=== PATIENT | female | born 1965 | race Caucasian/White ===

== ENCOUNTER 2017-06-28 17:07 | Inpatient (IN) | payer BC, OTHER ==
[~2017-06-28] VITALS: Ht 162.6 cm; Wt 66.2 kg
[2017-06-28] MEDS ORDERED: THIAMINE HCL 200 MG/2 ML VIAL IM ONE (17:45)
[2017-06-28] MEDS ORDERED: CLONIDINE HCL 0.1 MG TABLET PO PRN (17:45)
[2017-06-28] MEDS ORDERED: ACETAMINOPHEN 325 MG TABLET PO PRN (17:45)
[2017-06-28] MEDS ORDERED: MAG HYDROX/AL HYDROX/SIMETH 30 ML LIQUID UDC PO PRN (17:45)
[2017-06-28] MEDS ORDERED: LORAZEPAM 2 MG/1 ML VIAL IM PRN (17:45)
[2017-06-28] MEDS ORDERED: ONDANSETRON 4 MG/2 ML VIAL IM PRN (17:45)
[2017-06-28] MEDS ORDERED: diphenhydrAMINE 50 MG CAPSULE PO PRN (17:45)
[2017-06-28] MEDS ORDERED: IBUPROFEN 400 MG TABLET PO PRN (17:45)
[2017-06-28] MEDS ORDERED: LORAZEPAM 1 MG TABLET PO PRN ×2 (17:45)
[2017-06-28] MEDS ORDERED: MIRALAX 17 GM POWD.PACK PO PRN (17:45)
[2017-06-28] MEDS ORDERED: MAGNESIUM HYDROXIDE 30 ML LIQUID UDC PO PRN (17:45)
[2017-06-28] MEDS ORDERED: ONDANSETRON ODT 4 MG TAB.RAPDIS SL PRN (17:45)
[2017-06-28 18:00] VITALS: BP 117/72
--- NOTE | 2017-06-28 18:00 | NUR ---
PRE-ASSESSMENT Pt admitted for ETOH withdrawals. A/O x4, pt is intake office at this time with daughter at side. V/S are stable and as follows: T: 98.5, 117/72, 96% room air, RR 16 even and unlabored, denies pain at this time. Reports history of epilepsy, and takes Keppra 500 mg Q12H, reports hx of pulmonary embolism (multiple, but last one was 5 years ago) and remains on Coumadin 5 mg daily. Pt to continue intake process, MD to be notified of pt status and hx at this time. Addendum: 06/28/17 at 1859 by JOHNNY TOVAR RN HEART RATE 99. CIWA 9.
[2017-06-28] MEDS ORDERED: LORAZEPAM 1 MG TABLET PO ONE (18:15)
[2017-06-28] MEDS ORDERED: WARF5TAB77 PO (18:23)
[2017-06-28] MEDS ORDERED: LEVE500T9 PO (18:23)
--- NOTE | 2017-06-28 18:30 | NUR ---
PT STATUS/MD COMMUNICATION Pt in lab to provide blood for admission when nurse and Dr. King notified pt is having a "seizure." Per Dr. King orders. 2mg IM Ativan to be administered at once for seizure. Pt has not yet provided urine for toxicology screen or hcg, MD aware. RR called, and Ativan 2mg administered as ordered per MD. Pt brought up in wheelchair at this time, and is on a 1:1 for safety. To be monitored closely. rubber off nurse to resume care.
[2017-06-28] MEDS ORDERED: LORAZEPAM 2 MG/1 ML VIAL ONE (18:39)
[2017-06-28] MEDS ORDERED: LORAZEPAM 2 MG/1 ML VIAL IM ONE (18:45)
[2017-06-28 18:47] LABS: BASOPHILS % (AUTO) 0.7 % (0.0-2.0); HEMATOCRIT 38.4 % (37-47); HEMOGLOBIN 12.6 G/DL (12.0-16.0); LYMPHOCYTES # (AUTO) 3.7 K/UL (0.8-4.8); LYMPHOCYTES % (AUTO) 51.8 % (20.5-51.5); MEAN CORPUSCULAR HEMOGLOBIN 32.6 UUG (27.0-31.0); MEAN CORPUSCULAR HGB CONC 33 g/dL (32.0-37.0); MEAN CORPUSCULAR VOLUME 99.2 FL (81.0-99.0); MONOCYTES # (AUTO) 0.4 K/UL (0.1-1.30); MONOCYTES % (AUTO) 5.1 % (0.0-11.0); NEUTROPHILS % (AUTO) 42.4 % (38.5-71.5); PLATELET COUNT (AUTO) 188 K/UL (150-450); RED BLOOD CELL COUNT(AUTO) 3.87 MIL/UL (4.2-5.4); WHITE BLOOD COUNT (AUTO) 7.1 K/UL (4.0-11.2)
[2017-06-28 18:58] LABS: CREATININE 0.7 mg/dL (0.6-1.3); MAGNESIUM 1.9 mg/dL (1.8-2.4); POTASSIUM 3.6 mmol/L (3.5-5.1)
[2017-06-28] MEDS: LORAZEPAM 2 MG/1 ML VIAL IM PRN ×2 (19:02→19:10)
[2017-06-28 19:21] LABS: THYROID STIMULATING HORMONE 1.674 mIU/mL (0.358-3.740)
--- NOTE | 2017-06-28 19:45 | NUR ---
Start of Shift Note: Report received from day shift nurse, pre-admission assessment completed. Pt is a 51 y/o female admitted today for medically-supervised withdrawal from ETOH. Pt reports achieving 40 days of sobriety and relapsing on 06/23/17 and drinking 2 pints vodka daily. Pt received with last CIWA=9 and one-time Ativan 2mg IM given upon admission. Pt is on a regular diet. Pt reports NKA. PMHx: epilepsy and is on Keppra, PE and is on Coumadin. Pt received in room and reports anxiety, agitation; pt is noted to be labile. Bed is in low position and locked, side rails up x2, call light within reach. Will continue to monitor.
[2017-06-28 20:00] VITALS: BP 115/77
[2017-06-28 20:36] LABS: *AMPHETAMINE, URINE NEGATIVE (NEGATIVE); *BARBITURATE, URINE NEGATIVE (NEGATIVE); *CANNABINOID, URINE POSITIVE (NEGATIVE); *COCCAINE, URINE NEGATIVE (NEGATIVE); *OPIATE, URINE NEGATIVE (NEGATIVE); *PHENCYCLIDINE SCREEN,URINE NEGATIVE (NEGATIVE)
--- NOTE | 2017-06-28 21:00 | NUR ---
ADMISSION NOTE: NEW ADMISSION IS A 51 YO FEMALE ON THE [facility] FLOOR AT 18:35 ON 06/28/17; PRE-ADMISSION ASSESSMENT COMPLETED INTAKE OFFICE BY DAY SHIFT NURSE. UDS RESULTED POSITIVE FOR CANNABINOIDS. VS: WNL. CIWA: 9. HEIGHT IS 5'4 AND WEIGHT IS 146 LBS. PT REPORTS NKDA/NKFA. PT REPORTS PCP IS DR WILKERSON. PT ADMITTED UNDER THE CARE OF DR WILSON. PT REPORTS THE FOLLOWING SUBSTANCE USE: PT REPORTS ACHIEVING 40 DAYS OF SOBRIETY WHILE IN [facility], AND THEN RELAPSING NOT LONG AFTER DISCHARGE. PT IS A POOR HISTORIAN, AND REPORTS DRINKING FOR 2 DAYS. PT'S DAUGHTER REPORTS THAT PT RELAPSED ON 06/23/17 HAS BEEN DRINKING FOR 6 DAYS. PT REPORTS DRINKING 1 PINT DAILY FOR 2 DAYS. PT REPORTS THAT SHE SMOKES OCCASIONALLY. WRITTEN SMOKING CESSATION EDUCATION PROVIDED. PT VERBALIZES UNDERSTANDING. PT REPORTS PMHX OF MULTIPLE PE'S AND IS ON WARFARIN 5MG; ALSO KEPPRA 750MG FOR EPILEPSY. PT REPORTS THAT HER LAST SEIZURE WAS 6 MONTHS AGO. PT IS AMBULATORY WITH STEADY GAIT. PT IS A&OX4, AND INTERMITTENTLY LABILE AND AGITATED. SKIN ASSESSMENT: SCRATCH TO FOREHEAD AND CUT TO LEFT THIRD FINGER; PHOTO DOCUMENTATION COMPLETED AND PLACED IN CHART. PT DENIES CURRENT OR HX OF SI/HI. LUNGS ARE CTA THROUGHOUT, RESPIRATIONS ARE EVEN AND UNLABORED. PT DENIES COUGH. HEART SOUNDS REGULAR. BOWEL SOUNDS ACTIVE IN ALL QUADRANTS; PT REPORTS LAST BM WNL ON 06/27/17. ABDOMEN IS SOFT, NON-DISTENDED, NON-TENDER.
[2017-06-28] MEDS: LEVETIRACETAM 500 MG TABLET PO SCH (21:39)
--- NOTE | 2017-06-28 21:39 | NUR ---
PRN Ativan 2mg: Pt noted to be agitated and reports severe anxiety. Pt c/o nausea and noted with "dry heaves". CIWA is 16. Administered PRN Ativan 2mg PO as ordered according to CIWA score. Will reassess in one hour.
[2017-06-28] MEDS ORDERED: HYDROXYZINE PAMOATE 25 MG CAPSULE PO ONE (22:15)
--- NOTE | 2017-06-28 22:17 | NUR ---
Vistaril 50mg ONCE: Pt c/o anxiety after PRN Atian administration. Dr King notified and Vistaril 50mg one time order received. Medication administered as ordered.
[2017-06-28] MEDS ORDERED: HYDROXYZINE PAMOATE 25 MG CAPSULE ONE (22:30)
--- NOTE | 2017-06-28 22:40 | NUR ---
PRN Reassessment: Pt noted to be less anxious and agitated. Pt denies nausea at this time. CIWA decreased from 16 to 6 one hour after PRN Ativan 2mg administration.
[2017-06-29] VITALS: BP 117/55
--- NOTE | 2017-06-29 | NUR ---
CIWA Deferred: CIWA is deferred for sleep. V/S stable. All safety precautions are in place. Will continue to monitor. Addendum: 06/29/17 at 0258 by NESS SANCHEZ RN Amended: Links added.
--- NOTE | 2017-06-29 04:00 | NUR ---
Vitals Refused, CIWA Deferred: Patient refuses 04:00 vital signs. Pt educated on risks and benefits but still refused. CIWA assessment is deferred for sleep. All safety precautions are in place. Will continue to monitor. Addendum: 06/29/17 at 0555 by NESS SANCHEZ RN Amended: Links added.
--- NOTE | 2017-06-29 07:04 | NUR ---
End of Shift Note: Pt is a 51 y/o female admitted to [facility] on 06/28/17 for medically-supervised withdrawal from ETOH. Pt reported a PMHx of epilepsy recurrent PE's; pt is on Coumadin and Keppra. Pt is on a regular diet. Pt reports NKA. Pt is a full code. Pt reports achieving 40 days of sobriety and relapsed on 06/23/17, drinking 1 pint vodka daily. PRN Ativan 2mg was given for CIWA=16, which was effective and CIWA reduced to 6. Vistaril 50mg one time order was given for anxiety. V/S stable throughout shift. Total fluid intake this shift: 2446 ml; output: urine x 2 and BM x 0. Pt is currently in bed and slept 8 hours this shift. All needs have been attended and met. Pt endorsed to day shift nurse.
[2017-06-29 08:00] VITALS: BP 129/77
[2017-06-29] MEDS: FOLIC ACID 1 MG TABLET PO SCH (08:58)
[2017-06-29] MEDS: MULTIVITAMINS,THERAPEUTIC TABLET PO SCH (08:59)
[2017-06-29] MEDS: THIAMINE HCL 100 MG TABLET PO SCH (08:59)
--- NOTE | 2017-06-29 08:59 | NUR ---
PRN TYLENOL Patient complained of 5/10 headache, prn Tylenol given. will continue to monitor patient.
[2017-06-29] MEDS ORDERED: TUBERCULIN,PURIF.PROT.DERIV. 5 TU/0.1 ML TEST ID ONE (09:00)
[2017-06-29] MEDS: LEVETIRACETAM 500 MG TABLET PO SCH ×2 (09:14→20:38)
--- NOTE | 2017-06-29 09:59 | NUR ---
REASSESSMENT PRN TYLENOL Patient reports headache resolved. Pain 0/10.
--- NOTE | 2017-06-29 10:00 | NUR ---
START OF SHIFT Received report from steward/stewardess night nurse. Patient is 51 year old female admitted for medically supervised withdrawal from alcohol. Patient is full code with NKA. Patient is on senior safety support manager for fall and seizure precaution. On assessment this AM: CIWA: 5. Denies SOB, chest pain. Vitals signs WNL. Reports mild anxiety and headache. Med compliant with AM meds. PRN Tylenol po given for headache. PPD skin test performed on LFA to be read on 07/01/17. Patient was encouraged to attend group meetings today. Will continue to monitor patient.
[2017-06-29 12:00] VITALS: BP 131/91
--- NOTE | 2017-06-29 14:57 | NUR ---
PRN ATIVAN Patient's CIWA is 5. Patient complains of moderate anxiety and sweating. PRN Ativan given. Will continue to monitor patient.
[2017-06-29] MEDS ORDERED: HYDROXYZINE PAMOATE 25 MG CAPSULE PO PRN (15:15)
--- NOTE | 2017-06-29 15:57 | NUR ---
REASSESSMENT PRN ATIVAN Patient's CIWA is 2. Patient reports decreased anxiety.
[2017-06-29 16:00] VITALS: BP 128/75
[2017-06-29] MEDS ORDERED: WARFARIN SODIUM 5 MG TABLET PO SCH (17:00)
--- NOTE | 2017-06-29 17:33 | NUR ---
Patient reports that she does not have PCP.
[2017-06-29] MEDS ORDERED: HYDR-3895 PO (18:36)
[2017-06-29] MEDS ORDERED: DIPH50CA37 PO (18:36)
[2017-06-29] MEDS ORDERED: LEVE500T9 PO (18:36)
--- NOTE | 2017-06-29 19:25 | NUR ---
END OF SHIFT Patient is 51 year old female admitted for medically supervised withdrawal from alcohol. Patient is full code with NKA. Patient is on safety leader for fall and seizure precaution. Patient received Ativan 1mg po Ativan, CIWA 5, complaining of increasing anxiety and sweaty. Reassessed patient, CIWA 2 and reports decreased anxiety. Compliant with routine meds during this shift. Patient tolerating meals without n/v. Possible discharge tomorrow. laundry clerkrn shift mgr will continue to monitor patient.
[2017-06-29 20:00] VITALS: BP 162/101
--- NOTE | 2017-06-29 20:00 | NUR ---
Start of Shift Note: Report received from day shift nurse. Pt is a 51F admitted on 06/28/17 for medically-supervised withdrawal from ETOH. Pt reports achieving 40 days of sobriety and then relapsed on 06/23/17; pt then reports drinking 1 pint vodka daily. Pt received with last CIWA=2, and PRN Ativan 1mg and PRN Tylenol were given during day shift. Pt is to discharge tomorrow. Pt is on a regular diet. Pt reports NKA. PMHx: epilepsy, recurrent PE's. Pt received in room and reports anxiety. Pt verbalizes readiness for discharge. Bed is in low position and locked, side rails up x2, call light within reach. Will continue to monitor.
--- NOTE | 2017-06-29 20:38 | NUR ---
PRN Clonidine: Pt with BP 162/101. Administered PRN Clonidine as ordered. Will continue to monitor.
[2017-06-29 21:40] VITALS: BP 146/95
--- NOTE | 2017-06-29 21:40 | NUR ---
PRN Reassessment: BP is now 146/95 one hour after PRN Clonidine administration.
--- NOTE | 2017-06-30 | NUR ---
V/S Refused, CIWA Deferred: Pt refuses 00:00 vital signs. Pt educated on risks and benefits but still refused. CIWA is deferred for sleep. All safety precautions are in place. Will continue to monitor. Addendum: 06/30/17 at 0304 by NESS SANCHEZ RN Amended: Links added.
--- NOTE | 2017-06-30 04:00 | NUR ---
Vital Signs Refused, CIWA Deferred: Patient refuses 04:00 vital signs assessment. Patient educated on risks and benefits but still refused. CIWA is deferred for sleep. Addendum: 06/30/17 at 0513 by NESS SANCHEZ RN Amended: Links added.
--- NOTE | 2017-06-30 06:53 | NUR ---
End of Shift Note: Pt is a 51F admitted to [facility] on 06/28/17 for medically-supervised withdrawal from ETOH. Pt reports achieving 40 days of sobriety and then relapsed on 06/23/17; pt then reports drinking 1 pint vodka daily. Pt reports a PMHx of epilepsy and recurrent PE's. Pt is on a regular diet. Pt reports NKA. Pt is a full code. PRN Catapres was given for increased BP, which was effective. Total fluid intake this shift: 855 ml; output: urine x 4 and BM x 1. Pt is to discharge today. Pt is currently in bed and slept 7 hours this shift. All needs have been attended and met. Pt endorsed to day shift nurse.
--- NOTE | 2017-06-30 07:30 | NUR ---
Start of shift note; Received report from night nurse. Patient is a 51 year old female admitted on 06/28/17 for ETOH dependence. Patient was placed on PRN medications only. Patient reported history of multiple PE's , epilepsy. NKA, on full code status, regular diet. Patient slept 7 hours. Patient's last CIWA is 3 at 0400. Patient is on fall and seizure precaution. Patient is medically cleared for discharge today. All safety measures secured. Will continue to monitor patient.
[2017-06-30 08:00] VITALS: BP 124/80
[2017-06-30 08:08] LABS: HEPATITIS B SURFACE AG Negative (Negative)
[2017-06-30] MEDS: FOLIC ACID 1 MG TABLET PO SCH (08:16)
[2017-06-30] MEDS: LEVETIRACETAM 500 MG TABLET PO SCH (08:16)
[2017-06-30] MEDS: MULTIVITAMINS,THERAPEUTIC TABLET PO SCH (08:16)
[2017-06-30] MEDS: THIAMINE HCL 100 MG TABLET PO SCH (08:16)
--- NOTE | 2017-06-30 08:28 | NUR ---
PRN medication; Patient appears to be very anxious and agitated,nervous about her upcoming discharge. Non pharmacological techniques ineffective. PRN Vistaril 25 mg PO given for anxiety. Will continue to monitor patient for effectiveness of medication .
--- NOTE | 2017-06-30 09:28 | NUR ---
Re-assessment; Patient appears calm and comfortable. PRN Vistaril is effective.
--- NOTE | 2017-06-30 10:13 | NUR ---
Discharge note; Patient is AOX4. All valuables, belongings, medications, prescriptions given to patient. Patient is medically cleared for discharge. Patient left the hospital at exactly 1013 on 06/30/17. patient left in a stable condition. Met all needs.
== END 2017-06-30 10:13 | disposition other institution (70) | DRG 896 ==
LOC: SRC 17:36
PROVIDERS: ADMIT Internal Medicine; ATTEND Internal Medicine
PROC: HZ2ZZZZ Detoxification Services for Substance Abuse Treatment (ICD-10-PCS; principal; 2017-06-28)
DX: F10.230 Alcohol dependence with withdrawal, uncomplicated (principal); K85.20 Alcohol induced acute pancreatitis without necrosis or infection; G40.919 Epilepsy, unspecified, intractable, without status epilepticus; D68.59 Other primary thrombophilia; K70.10 Alcoholic hepatitis without ascites; F10.220 Alcohol dependence with intoxication, uncomplicated; Y90.8 Blood alcohol level of 240 mg/100 ml or more; Z72.0 Tobacco use; Z81.1 Family history of alcohol abuse and dependence; Z86.711 Personal history of pulmonary embolism; Z79.01 Long term (current) use of anticoagulants; Z79.899 Other long term (current) drug therapy; F12.10 Cannabis abuse, uncomplicated
CPT/HCPCS: 36415; 80307; 80349; 83690; 83735; 84443; 84703; 85025; 85610; 86580; 86592; 86705; 86803; 87340; 87806; G0480; J2060